=== PATIENT | female | born 1990 | race Caucasian/White ===

== ENCOUNTER 2016-07-17 10:40 | Emergency (ER) | payer OTHER ==
[2016-07-17] MEDS ORDERED: ONDANSETRON DISINTEGRATING 4 MG TAB ONE (10:54)
[2016-07-17] MEDS ORDERED: ONDANSETRON DISINTEGRATING 4 MG TAB PO ONE (11:02)
[2016-07-17] MEDS ORDERED: NS 1,000 ML IV ONE (11:12)
[2016-07-17 11:31] LABS: % IMMATURE GRANULYOCYTES 0.5 % (0.0-1.1); ABSOLUTE IMMATURE GRANULOCYTES 0.05 10^3/uL (0.00-0.10); ADD DIFF? NO; ADD MORPH? NO; ADD SCAN? NO; ATYPICAL LYMPHOCYTE FLAG 0 (0-99); FRAGMENT RBC FLAG 0 (0-99); HEMATOCRIT 44.2 % (38.0-47.0); LEFT SHIFT FLG 0 (0-99); LIPEMIA HEMOLYSIS FLAG 90 (0-99); MEAN CELL HEMOGLOBIN 27.5 pg (27.9-34.1); MEAN CELL HEMOGLOBIN CONCENTR. 33.9 g/dL (32.4-36.7); MEAN CELL VOLUME 81.1 fL (81.5-99.8); MEAN PLATELET VOLUME 9.9 fL (8.7-11.7); PLATELET CLUMPS FLAG 0 (0-99); PLATELET COUNT 286 10^3/uL (150-400); RED BLOOD CELL COUNT 5.45 10^6/uL (4.18-5.33); RED CELL DISTRIBUTION WIDTH 12.8 % (11.5-15.2)
--- NOTE | 2016-07-17 11:34 | UCPHY ---
H & P Patient Type: Established Chief Complaint Nursing Narrative: abd pain and nausea since last night; vomiting x1; last BM last night Time Seen by Provider: 07/17/16 10:58 HPI/ROS: This pt. describes Abd. pain - crampy in nature, epigastric more than lower belly pain, moderate intensity that made sleep difficult last pm. She notes no exac. or alleviating factors and now radiation of the pain. She's never had this pain before. She has associated anorexia, nausea and vomiting X 1 this am. Her last meal was dinner last pm. ROS: No fevers. She does c/o generalized weakness this am. No HEENT c/o. No SOB. she does notice that a deep breath increases abd. pain. No cardiovascular symptoms. : Last menstrual period was just under a month ago. That was normal timing. No urinary symptoms. GI: She reports loose stools about 3 day over the past 24 hours. No blood in her stool. No hematemesis or coffee-ground emesis. Integumentary: No rash 10 point ROS is otherwise negative. Source: Patient Exam Limitations: No limitations - Personal History LMP (Females 10-55): Over 28 Days Ago Current Tetanus/Diphtheria Vaccine: Yes - Medical/Surgical History PMH: otherwise healthy 25-year-old female with no previous belly surgeries Other PMH: med hx-none. 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 - Physical Exam Exam: General Appearance: Alert, no distress. Eyes: Pupils equal and round no pallor or injection. ENT, Mouth: Mucous membranes moist. Respiratory: There are no retractions, lungs are clear to auscultation. A deep breath does cause more belly pain Cardiovascular: Regular rate and rhythm. Gastrointestinal: Hypoactive BS. Soft, mild epigastric tenderness with no organomegally. Mild suprapubic t. w/o rebound. Back: No CVA tenderness Neurological: Alert with no focal deficits. Skin: Warm and dry, no rashes. Musculoskeletal: Neck is supple nontender. Extremities are symmetrical, full range of motion. Psychiatric: Mood and affect are normal DIFFERENTIAL DIAGNOSIS: After history and physical exam differential diagnosis was considered for Viral gastroenteritis, Hepatitis, Pancreatitis, Cholecystitis , preg. Constitutional: Initial Vital Signs Temperature (C) 36.7 C 07/17/16 10:56 Heart Rate 106 H 07/17/16 10:56 Respiratory Rate 18 07/17/16 10:56 Blood Pressure 137/99 H 07/17/16 10:56 O2 Sat (%) 97 07/17/16 10:56 O2 Delivery Mode Room Air Allergies/Adverse Reactions: No Known Allergies Allergy (Verified 07/17/16 10:56) Home Medications: Medication Instructions Recorded Bcp 05/03/16 Multi-Day Vitamins 05/03/16 Thyroid 05/03/16 HYOSCYAMINE SULFATE [LEVSIN-SL] 0.125 - 0.25 mg SL Q6 PRN #20 07/17/16 tab.subl Ondansetron Odt [Zofran Odt] 4 - 8 mg PO Q4PRN PRN #4 tab 07/17/16 Medical Decision Making ED Course/Re-evaluation: Zofran ODT with resolution of nausea vomiting. Lobe sutured with decreased abdominal cramping. I counseled the patient regarding viral gastroenteritis and abdominal cramping. She appears well at discharge. - Data Points Laboratory Results: Laboratory Results 07/17/16 11:25 07/17/16 11:25 07/17/16 07/17/16 07/17/16 12:10 11:42 11:25 WBC RBC Hgb Hct MCV MCH MCHC RDW Plt Count MPV Neut % (Auto) Lymph % (Auto) [place] % (Auto) Eos % (Auto) Baso % (Auto) Nucleat RBC Rel Count Absolute Neuts (auto) Absolute Lymphs (auto) Absolute Monos (auto) Absolute Eos (auto) Absolute Basos (auto) Absolute Nucleated RBC Immature Gran % Immature Gran # Sodium 140 mEq/L mEq/L (134-144) Potassium 4.1 mEq/L mEq/L (3.5-5.2) Chloride 105 mEq/L mEq/L (97-110) Carbon Dioxide 22 mEq/l mEq/l (22-31) Anion Gap 13 mEq/L mEq/L (8-16) BUN 12 mg/dL mg/dL (7-23) Creatinine 0.7 mg/dL mg/dL (0.6-1.0) Estimated GFR > 60 Glucose 108 mg/dL H mg/dL (70-100) Calcium 9.4 mg/dL mg/dL (8.5-10.4) Total Bilirubin 0.6 mg/dL mg/dL (0.1-1.4) AST 16 IU/L IU/L (14-46) ALT 16 IU/L IU/L (9-52) Alkaline Phosphatase 71 IU/L IU/L (38-126) Total Protein 7.3 g/dL g/dL (6.3-8.2) Albumin 3.8 g/dL g/dL (3.5-5.0) Lipase 75.0 IU/L IU/L (23-300) Beta HCG, Qual Urine Color YELLOW Urine Appearance CLEAR Urine pH 6.0 (5.0-7.5) Ur Specific [place] 1.020 (1.002-1.030) Urine Protein NEGATIVE (NEGATIVE) Urine Ketones TRACE H (NEGATIVE) Urine Blood NEGATIVE (NEGATIVE) Urine Nitrate NEGATIVE (NEGATIVE) Urine Bilirubin NEGATIVE (NEGATIVE) Urine Urobilinogen 0.2 EU EU (0.2-1.0) Ur Leukocyte Esterase NEGATIVE (NEGATIVE) Ur Culture Indicated? NOT INDICATED (NI) Urine Glucose NEGATIVE (NEGATIVE) 07/17/16 07/17/16 11:25 11:13 WBC 10.31 10^3/uL H 10^3/uL (3.80-9.50) RBC 5.45 10^6/uL H 10^6/uL (4.18-5.33) Hgb 15.0 g/dL g/dL (12.6-16.3) Hct 44.2 % % (38.0-47.0) MCV 81.1 fL L fL (81.5-99.8) MCH 27.5 pg L pg (27.9-34.1) MCHC 33.9 g/dL g/dL (32.4-36.7) RDW 12.8 % % (11.5-15.2) Plt Count 286 10^3/uL 10^3/uL (150-400) MPV 9.9 fL fL (8.7-11.7) Neut % (Auto) 87.3 % H % (39.3-74.2) Lymph % (Auto) 7.5 % L % (15.0-45.0) [place] % (Auto) 4.5 % % (4.5-13.0) Eos % (Auto) 0.0 % L % (0.6-7.6) Baso % (Auto) 0.2 % L % (0.3-1.7) Nucleat RBC Rel Count 0.0 % % (0.0-0.2) Absolute Neuts (auto) 9.01 10^3/uL H 10^3/uL (1.70-6.50) Absolute Lymphs (auto) 0.77 10^3/uL L 10^3/uL (1.00-3.00) Absolute Monos (auto) 0.46 10^3/uL 10^3/uL (0.30-0.80) Absolute Eos (auto) 0.00 10^3/uL L 10^3/uL (0.03-0.40) Absolute Basos (auto) 0.02 10^3/uL 10^3/uL (0.02-0.10) Absolute Nucleated RBC 0.00 10^3/uL 10^3/uL (0-0.01) Immature Gran % 0.5 % % (0.0-1.1) Immature Gran # 0.05 10^3/uL 10^3/uL (0.00-0.10) Sodium Potassium Chloride Carbon Dioxide Anion Gap BUN Creatinine Estimated GFR Glucose Calcium Total Bilirubin AST ALT Alkaline Phosphatase Total Protein Albumin Lipase Beta HCG, Qual NEGATIVE Urine Color Urine Appearance Urine pH Ur Specific [place] Urine Protein Urine Ketones Urine Blood Urine Nitrate Urine Bilirubin Urine Urobilinogen Ur Leukocyte Esterase Ur Culture Indicated? Urine Glucose Medications Given: Discontinued Medications Sodium Chloride (Ns) 1,000 mls @ 0 mls/hr IV ONCE ONE PRN Reason: Wide Open Stop: 07/17/16 11:13 Last Admin: 07/17/16 11:28 Dose: 1,000 mls Ondansetron HCl (Zofran Odt) 4 mg PO EDNOW ONE Stop: 07/17/16 11:03 Last Admin: 07/17/16 11:03 Dose: 4 mg Departure - Departure Disposition: Home, Routine, Self-Care Clinical Impression: Generalized abdominal cramping, Viral gastroenteritis Condition: Good Instructions: Gastroenteritis (ED) Additional Instructions: Diagnoses: 1. Viral gastroenteritis 2. Generalized abdominal cramping Your labs today are normal with the exception of mildly elevated with blood cell count consistent with this viral illness. Your not . Other labs are normal including normal liver function tests. Plan: Light diet until he feel improved Drink plenty fluids Zofran for nausea or vomiting if needed Levsin if needed for abdominal cramping Symptoms should improve over the next few days. Return for any significant worsening despite the treatment plan. Referrals: NONE *PRIMARY CARE P,. [Primary Care Provider] - As per Instructions Prescriptions: HYOSCYAMINE SULFATE [LEVSIN-SL] 0.125 - 0.25 mg SL Q6 PRN #20 tab.subl PRN Reason: abd. cramping Ondansetron Odt [Zofran Odt] 4 - 8 mg PO Q4PRN PRN #4 tab PRN Reason: Vomiting - PQRS PQRS Measurement: NA
[2016-07-17 11:45] VITALS: BP 120/83; PULSE 89; RESP 14; TEMP 98.8; O2SAT 96
[2016-07-17 11:49] LABS: ALANINE AMINOTRANSFERASE 16 IU/L (9-52); ALBUMIN 3.8 g/dL (3.5-5.0); ALKALINE PHOSPHATASE 71 IU/L (38-126); ANION GAP 13 mEq/L (8-16); ASPARTATE AMINOTRANSFERASE 16 IU/L (14-46); BILIRUBIN,TOTAL 0.6 mg/dL (0.1-1.4); CALCIUM 9.4 mg/dL (8.5-10.4); CARBON DIOXIDE 22 mEq/l (22-31); CHLORIDE 105 mEq/L (97-110); CREATININE 0.7 mg/dL (0.6-1.0); GLOMERULAR FILTRATION RATE > 60; GLUCOSE 108 mg/dL (70-100); POTASSIUM 4.1 mEq/L (3.5-5.2); SODIUM 140 mEq/L (134-144); TOTAL PROTEIN 7.3 g/dL (6.3-8.2)
[2016-07-17 12:20] LABS: COLOR YELLOW; LEUKOCYTE ESTERASE,URINE NEGATIVE (NEGATIVE); NITRITE,URINE NEGATIVE (NEGATIVE)
== END 2016-07-17 12:38 | disposition home or self-care (01) ==
LOC: CED 10:40
DX: K52.9 Noninfective gastroenteritis and colitis, unspecified (principal); R10.9 Unspecified abdominal pain; R63.0 Anorexia; Z72.0 Tobacco use
CPT/HCPCS: 80053-PO; 81003-PO; 83690-PO; 84703-PO; 85025-PO; 96360-PO; 99214-PO; G0463-PO

== ENCOUNTER 2016-08-07 10:34 | Emergency (ER) | payer OTHER ==
[2016-08-07] MEDS ORDERED: DEXAMETHASONE VARIABLE DOSE IVP/PO ONE (10:43)
[2016-08-07] MEDS ORDERED: AZITHROMYCIN 250 MG TAB PO ONE (10:44)
--- NOTE | 2016-08-07 10:47 | UCPHY ---
H & P Patient Type: New Time Seen by Provider: 08/07/16 10:39 HPI/ROS: CHIEF COMPLAINT: Sore throat HISTORY OF PRESENT ILLNESS: The patient is a 25-year-old female who comes to the Urgent Care complaining of a sore throat for the last 2 days. She has not had a fever. She has not had a cough for shortness of breath. She has not had any sinus congestion a ear symptoms. No headache. No abdominal symptoms. REVIEW OF SYSTEMS: Constitutional: denies: chills, fever, recent illness, recent injury EENTM: See HPI Respiratory: denies: cough, shortness of breath Cardiac: denies: chest pain, irregular heart rate, lightheadedness, palpitations Gastrointestinal/Abdominal: denies: abdominal pain, diarrhea, nausea, vomiting, blood streaked stools Genitourinary: denies: dysuria, frequency, hematuria, pain Musculoskeletal: denies: joint pain, muscle pain Skin: denies: lesions, rash, jaundice, bruising Neurological: denies: headache, numbness, paresthesia, tingling, dizziness, weakness Hematologic/Lymphatic: denies: blood clots, easy bleeding, easy bruising Immunologic/allergic: denies: HIV/AIDS, transplant EXAM: GENERAL: Well-appearing, well-nourished and in no acute distress. HEAD: Atraumatic, normocephalic. EYES: Pupils equal round and reactive to light, extraocular movements intact, sclera anicteric, conjunctiva are normal. ENT: TMs normal, nares patent, oropharynx erythematous and swollen. Moist mucous membranes. NECK: Normal range of motion, supple without lymphadenopathy or JVD. LUNGS: Breath sounds clear to auscultation bilaterally and equal. No wheezes rales or rhonchi. HEART: Regular rate and rhythm without murmurs, rubs or gallops. ABDOMEN: Soft, nontender, normoactive bowel sounds. No guarding, no rebound. No masses appreciated. BACK: No CVA tenderness, no spinal tenderness, step-offs or deformities EXTREMITIES: Normal range of motion, no pitting or edema. No clubbing or cyanosis. NEUROLOGICAL: Cranial nerves II through XII grossly intact. Normal speech, normal gait. 5/5 strength, normal movement in all extremities, normal sensation PSYCH: Normal mood, normal affect. SKIN: Warm, dry, normal turgor, no visible rashes or lesions. Source: Patient - Medical/Surgical History Hx Asthma: No Hx Chronic Respiratory Disease: No Hx Diabetes: No Hx Cardiac Disease: No Hx Renal Disease: No Hx Cirrhosis: No Hx Alcoholism: No Other PMH: med hx-none. surg-none - Family History Significant Family History: No pertinent family hx - Social History Smoking Status: Current some day smoker Alcohol Use: Sober Drug Use: None Constitutional: Initial Vital Signs Temperature (C) 37.0 C 08/07/16 10:37 Heart Rate 88 08/07/16 10:37 Respiratory Rate 18 08/07/16 10:37 Blood Pressure 150/88 H 08/07/16 10:37 O2 Sat (%) 97 08/07/16 10:37 O2 Delivery Mode Room Air Allergies/Adverse Reactions: No Known Allergies Allergy (Verified 08/07/16 10:47) Home Medications: Medication Instructions Recorded Bcp 05/03/16 Multi-Day Vitamins 05/03/16 Thyroid 05/03/16 HYOSCYAMINE SULFATE [LEVSIN-SL] 0.125 - 0.25 mg SL Q6 PRN #20 07/17/16 tab.subl Ondansetron Odt [Zofran Odt] 4 - 8 mg PO Q4PRN PRN #4 tab 07/17/16 AZITHROMYCIN [Z-PACK] 250 mg PO DAILY #4 tab 08/07/16 Medical Decision Making ED Course/Re-evaluation: The patient is a 25-year-old female with erythematous and swollen pharynx. I will start her on azithromycin and Decadron. Strep swab is pending. Patient understands and agrees with this plan. She declines further workup or testing at this time. We discussed indications for returning. Differential Diagnosis: Partial list of the Differential diagnosis considered include but were not limited to; strep throat, pharyngitis, viral syndrome, sinusitis and although unlikely based on the history and physical exam, I also considered bronchitis, pneumonia, meningitis, sepsis. I discussed these differential diagnoses and the plan with the patient as well as the usual and expected course. The patient understands that the diagnosis is provisional and that in medicine we are not always correct and that further workup is often warranted. Usual and customary warnings were given. All of the patient's questions were answered. The patient was instructed to return to the emergency department should the symptoms at all worsen or return, otherwise to followup with the physician as we discussed. - Data Points Laboratory Results: 08/07/16 10:45 Group A Strep Screen POSITIVE H (NEGATIVE) Medications Given: Discontinued Medications Azithromycin (Zithromax) 500 mg PO EDNOW ONE PRN Reason: Protocol Stop: 08/07/16 10:45 Last Admin: 08/07/16 11:00 Dose: 500 mg Dexamethasone Sodium Phosphate (Decadron) 10 mg IVP/PO EDNOW ONE Stop: 08/07/16 10:44 Last Admin: 08/07/16 11:00 Dose: 10 mg Departure - Departure Disposition: Home, Routine, Self-Care Clinical Impression: Pharyngitis Qualifiers: Pharyngitis/tonsillitis etiology: unspecified etiology Qualified Code(s): J02.9 - Acute pharyngitis, unspecified Condition: Fair Instructions: Pharyngitis (ED) Referrals: NONE *PRIMARY CARE P,. [Primary Care Provider] - As per Instructions Prescriptions: AZITHROMYCIN [Z-PACK] 250 mg PO DAILY #4 tab - PQRS PQRS Measurement: Not applicable
[2016-08-07] MEDS ORDERED: DEXAMETHASONE 4 MG TAB ONE (11:00)
[2016-08-07 11:34] VITALS: BP 150/88; PULSE 88; RESP 18; TEMP 98.6; O2SAT 97
== END 2016-08-07 11:10 | disposition home or self-care (01) ==
LOC: CED 10:34
DX: J02.9 Acute pharyngitis, unspecified (principal)
CPT/HCPCS: 87880-PO; 99204-PO; G0463-PO

== ENCOUNTER 2017-01-16 18:30 | Emergency (ER) | payer OTHER ==
--- NOTE | 2017-01-16 18:34 | EDPHY ---
H & P HPI/ROS: HPI CHIEF COMPLAINT: Right back pain, pleuritic pain, burning in chest HISTORY OF PRESENT ILLNESS: This patient very pleasant 26-year-old female, denies any significant medical history or surgical history does not take any daily medications except control, she does not smoke, she presents emergency room with pain in her right posterior scapular worse when she takes a deep breath in. She denies being pleuritic. Additionally she tells me she feels burning in the center of her chest. States it goes from the epigastric region up to the top of her throat. She denies any significant shortness of breath. Denies fever. Denies productive cough. She states she was recently sick with a cold last month. She decided come the emergency room as she is having ongoing back pain right scapula and burning in the anterior chest. No history of DVT or PE. No history of pneumonia. No history of pneumothorax. Past Surgical History: No recent surgical history Social History: Denies daily use drugs alcohol tobacco products Family History: Noncontributory ROS REVIEW OF SYSTEMS: A comprehensive 10 point review of systems is otherwise negative aside from elements mentioned in the history of present illness. Exam Constitutional appears well nontoxic, triage nursing summary reviewed, vital signs reviewed, awake/alert. Eyes normal conjunctivae and sclera, EOMI, PERRLA. HENT normal inspection, atraumatic, moist mucus membranes, no epistaxis, neck supple/ no meningismus, no raccoon eyes. Respiratory clear to auscultation bilaterally, normal breath sounds, no respiratory distress, no wheezing. Cardiovascular rate normal, regular rhythm, no murmur, no edema, distal pulses normal. Gastrointestinal soft, non-tender, no rebound, no guarding, normal bowel sounds, no distension, no pulsatile mass. Genitourinary no CVA tenderness. Musculoskeletal no midline vertebral tenderness, full range of motion, no calf swelling, no tenderness of extremities, no meningismus, good pulses, neurovascularly intact. Skin pink, warm, & dry, no rash, skin atraumatic. Neurologic awake, alert and oriented x 3, AAOx3, moves all 4 extremities equally, motor intact, sensory intact, CN II-XII intact, normal cerebellar, normal vision, normal speech. Psychiatric normal mood/affect. Heme/Lymph/Immune no lymphadenopathy. Differential Diagnosis: Includes but is not limited to in a particular order, PE, pleurisy, pneumonia, pneumothorax, musculoskeletal pain, GERD, doubt acute coronary syndrome Medical Decision Making: Plan for this patient IV establishment, blood draw, EKG, GI cocktail. Chest x-ray. Re-evaluate. Re-evaluation: EKG interpretation by me on record in [facility] system. Impression and time of EKG 1847, sinus rhythm rate of 66, unremarkable EKG. No acute ischemic changes appreciated. 1947: Re-evaluation at this time patient resting comfortably. No acute distress. Feels much better after GI cocktail. States the burning sensation or chest has resolved. Her chest x-ray, EKG, D-dimer, troponin, electrolytes have been reviewed. Nothing to explain this burning sensation in her chest decides reflux. The pain in her back I do not visualize any lung mass or tumor. There is no pneumonia. D-dimer is negative for PE. Recommend placing on anti-inflammatories and Zantac the next 2 weeks. Patient understands return emergency room if there is worsening symptoms includes worsening shortness of breath, chest pain or any questions or concerns she understands. Source: Patient - Medical/Surgical History Hx Asthma: No Hx Chronic Respiratory Disease: No Hx Diabetes: No Hx Cardiac Disease: No Hx Renal Disease: No Hx Cirrhosis: No Hx Alcoholism: No Other PMH: med hx-none. surg-none - Social History Smoking Status: Current some day smoker Constitutional: Initial Vital Signs Temperature (C) 36.7 C 01/16/17 18:45 Heart Rate 74 01/16/17 18:45 Respiratory Rate 16 01/16/17 18:45 Blood Pressure 131/85 H 01/16/17 18:45 O2 Sat (%) 98 01/16/17 18:45 O2 Delivery Mode Room Air Allergies/Adverse Reactions: No Known Allergies Allergy (Verified 08/07/16 10:47) Home Medications: Medication Instructions Recorded Bcp 05/03/16 Multi-Day Vitamins 05/03/16 Thyroid 05/03/16 HYOSCYAMINE SULFATE [LEVSIN-SL] 0.125 - 0.25 mg SL Q6 PRN #20 07/17/16 tab.subl Ondansetron Odt [Zofran Odt] 4 - 8 mg PO Q4PRN PRN #4 tab 07/17/16 AZITHROMYCIN [Z-PACK] 250 mg PO DAILY #4 tab 08/07/16 Ranitidine HCl [Zantac] 150 mg PO DAILY #30 tablet 01/16/17 Medical Decision Making - Diagnostics Imaging Results: Imaging Impressions Chest X-Ray 01/16/17 18:42 Impression: Normal chest x-ray. - Data Points Laboratory Results: Laboratory Results 01/16/17 18:55 01/16/17 18:55 01/16/17 01/16/17 01/16/17 18:55 18:55 18:55 WBC RBC Hgb Hct MCV MCH MCHC RDW Plt Count MPV Neut % (Auto) Lymph % (Auto) [place] % (Auto) Eos % (Auto) Baso % (Auto) Nucleat RBC Rel Count Absolute Neuts (auto) Absolute Lymphs (auto) Absolute Monos (auto) Absolute Eos (auto) Absolute Basos (auto) Absolute Nucleated RBC Immature Gran % Immature Gran # D-Dimer < 0.27 ug/mLFEU ug/mLFEU (0.00-0.50) Sodium 140 mEq/L mEq/L (134-144) Potassium 3.8 mEq/L mEq/L (3.5-5.2) Chloride 105 mEq/L mEq/L (97-110) Carbon Dioxide 23 mEq/l mEq/l (22-31) Anion Gap 12 mEq/L mEq/L (8-16) BUN 13 mg/dL mg/dL (7-23) Creatinine 0.7 mg/dL mg/dL (0.6-1.0) Estimated GFR > 60 Glucose 98 mg/dL mg/dL (70-100) Calcium 9.6 mg/dL mg/dL (8.5-10.4) Magnesium 2.0 mg/dL mg/dL (1.6-2.3) Total Bilirubin 0.3 mg/dL mg/dL (0.1-1.4) Conjugated Bilirubin 0.3 mg/dL mg/dL (0.0-0.5) Unconjugated Bilirubin 0.0 mg/dL mg/dL (0.0-1.1) AST 15 IU/L IU/L (14-46) ALT 25 IU/L IU/L (9-52) Alkaline Phosphatase 57 IU/L IU/L (38-126) Creatine Kinase 48 IU/L IU/L (0-156) CK-MB (CK-2) Fraction < 0.22 ng/mL ng/mL (0.00-4.55) Troponin I < 0.012 ng/mL ng/mL (0.000-0.034) NT-Pro-B Natriuret Pep 63 pg/mL pg/mL (0-125) Total Protein 7.1 g/dL g/dL (6.3-8.2) Albumin 3.9 g/dL g/dL (3.5-5.0) Lipase 135 IU/L IU/L (23-300) Beta HCG, Qual NEGATIVE 01/16/17 18:55 WBC 11.43 10^3/uL H 10^3/uL (3.80-9.50) RBC 5.13 10^6/uL 10^6/uL (4.18-5.33) Hgb 13.9 g/dL g/dL (12.6-16.3) Hct 41.5 % % (38.0-47.0) MCV 80.9 fL L fL (81.5-99.8) MCH 27.1 pg L pg (27.9-34.1) MCHC 33.5 g/dL g/dL (32.4-36.7) RDW 12.7 % % (11.5-15.2) Plt Count 304 10^3/uL 10^3/uL (150-400) MPV 9.9 fL fL (8.7-11.7) Neut % (Auto) 62.6 % % (39.3-74.2) Lymph % (Auto) 29.1 % % (15.0-45.0) [place] % (Auto) 7.7 % % (4.5-13.0) Eos % (Auto) 0.0 % L % (0.6-7.6) Baso % (Auto) 0.3 % % (0.3-1.7) Nucleat RBC Rel Count 0.0 % % (0.0-0.2) Absolute Neuts (auto) 7.14 10^3/uL H 10^3/uL (1.70-6.50) Absolute Lymphs (auto) 3.33 10^3/uL H 10^3/uL (1.00-3.00) Absolute Monos (auto) 0.88 10^3/uL H 10^3/uL (0.30-0.80) Absolute Eos (auto) 0.00 10^3/uL L 10^3/uL (0.03-0.40) Absolute Basos (auto) 0.04 10^3/uL 10^3/uL (0.02-0.10) Absolute Nucleated RBC 0.00 10^3/uL 10^3/uL (0-0.01) Immature Gran % 0.3 % % (0.0-1.1) Immature Gran # 0.04 10^3/uL 10^3/uL (0.00-0.10) D-Dimer Sodium Potassium Chloride Carbon Dioxide Anion Gap BUN Creatinine Estimated GFR Glucose Calcium Magnesium Total Bilirubin Conjugated Bilirubin Unconjugated Bilirubin AST ALT Alkaline Phosphatase Creatine Kinase CK-MB (CK-2) Fraction Troponin I NT-Pro-B Natriuret Pep Total Protein Albumin Lipase Beta HCG, Qual Medications Given: Discontinued Medications Al Hydroxide/Mg Hydroxide (Maalox Susp) 30 ml PO ONCE ONE Stop: 01/16/17 18:44 Last Admin: 01/16/17 18:50 Dose: 30 ml Hyoscyamine Sulfate (Levsin, Hyomax-Sl) 0.25 mg PO ONCE ONE Stop: 01/16/17 18:44 Last Admin: 01/16/17 18:50 Dose: 0.25 mg Sodium Chloride (Ns) 1,000 mls @ 0 mls/hr IV EDNOW ONE; Wide Open PRN Reason: Protocol Stop: 01/16/17 18:43 Last Admin: 01/16/17 18:51 Dose: 1,000 mls Lidocaine (Lidocaine 2% Viscous) 15 ml PO ONCE ONE Stop: 01/16/17 18:44 Last Admin: 01/16/17 18:50 Dose: 15 ml Departure - Departure Disposition: Home, Routine, Self-Care Clinical Impression: GERD (gastroesophageal reflux disease) Qualifiers: Esophagitis presence: without esophagitis Qualified Code(s): K21.9 - Gastro- esophageal reflux disease without esophagitis Condition: Good Instructions: Gastroesophageal Reflux Disease (ED) Additional Instructions: 1. Return emergency room if develops worsening symptoms questions or concerns. 2. [place] diet next 24-48 hours. No spicy fatty greasy foods. 3. Zantac as prescribed. He may also take Tylenol for her back pain. Referrals: NONE *PRIMARY CARE P,. [Primary Care Provider] - As per Instructions Prescriptions: Ranitidine HCl [Zantac] 150 mg PO DAILY #30 tablet
[2017-01-16] MEDS ORDERED: NS 1,000 ML IV ONE (18:42)
[2017-01-16] MEDS ORDERED: MAG HYDROX/AL HYDROX/SIMETH 30 ML UDCUP PO ONE (18:43)
[2017-01-16] MEDS ORDERED: LIDOCAINE 2% VISCOUS 15 ML UDCUP PO ONE (18:43)
[2017-01-16] MEDS ORDERED: HYOSCYAMINE SULFATE 0.125 MG TAB PO ONE (18:43)
[2017-01-16 18:46] VITALS: TEMP 98.1; O2SAT 98
--- NOTE | 2017-01-16 18:50 | CPEKG ---
Heart Rate: 66 RR Interval: 909 P-R Interval: 164 QRSD Interval: 90 QT Interval: 380 QTC Interval: 399 P [place]: 42 QRS [place]: 71 T Wave [place]: 38 EKG Severity - NORMAL ECG - EKG Impression: SINUS RHYTHM Electronically Signed By: Jorgito Henderson 19-Jan-2017 08:16:38
[2017-01-16 18:59] LABS: % IMMATURE GRANULYOCYTES 0.3 % (0.0-1.1); ABSOLUTE IMMATURE GRANULOCYTES 0.04 10^3/uL (0.00-0.10); ADD DIFF? NO; ADD MORPH? NO; ADD SCAN? NO; ATYPICAL LYMPHOCYTE FLAG 10 (0-99); FRAGMENT RBC FLAG 0 (0-99); HEMATOCRIT 41.5 % (38.0-47.0); HEMOGLOBIN 13.9 g/dL (12.6-16.3); LEFT SHIFT FLG 0 (0-99); LIPEMIA HEMOLYSIS FLAG 80 (0-99); MEAN CELL HEMOGLOBIN 27.1 pg (27.9-34.1); MEAN CELL HEMOGLOBIN CONCENTR. 33.5 g/dL (32.4-36.7); MEAN CELL VOLUME 80.9 fL (81.5-99.8); MEAN PLATELET VOLUME 9.9 fL (8.7-11.7); PLATELET CLUMPS FLAG 30 (0-99); PLATELET COUNT 304 10^3/uL (150-400); RED BLOOD CELL COUNT 5.13 10^6/uL (4.18-5.33); RED CELL DISTRIBUTION WIDTH 12.7 % (11.5-15.2)
[2017-01-16 19:20] LABS: ALANINE AMINOTRANSFERASE 25 IU/L (9-52); ALBUMIN 3.9 g/dL (3.5-5.0); ALKALINE PHOSPHATASE 57 IU/L (38-126); ANION GAP 12 mEq/L (8-16); ASPARTATE AMINOTRANSFERASE 15 IU/L (14-46); BILIRUBIN,TOTAL 0.3 mg/dL (0.1-1.4); BILIRUBIN-CONJUGATED 0.3 mg/dL (0.0-0.5); CALCIUM 9.6 mg/dL (8.5-10.4); CARBON DIOXIDE 23 mEq/l (22-31); CHLORIDE 105 mEq/L (97-110); CREATININE 0.7 mg/dL (0.6-1.0); GLOMERULAR FILTRATION RATE > 60; GLUCOSE 98 mg/dL (70-100); POTASSIUM 3.8 mEq/L (3.5-5.2); SODIUM 140 mEq/L (134-144); TOTAL PROTEIN 7.1 g/dL (6.3-8.2)
[2017-01-16 19:24] LABS: CREATINE KINASE-MB FRACTION < 0.22 ng/mL (0.00-4.55); TROPONIN I < 0.012 ng/mL (0.000-0.034)
[2017-01-16 19:54] VITALS: BP 128/71; PULSE 66; RESP 16
== END 2017-01-16 19:54 | disposition home or self-care (01) ==
LOC: CED 18:30
DX: K21.9 Gastro-esophageal reflux disease without esophagitis (principal); F17.200 Nicotine dependence, unspecified, uncomplicated; E86.9 Volume depletion, unspecified
CPT/HCPCS: 71020-PO; 80048-PO; 80076-PO; 82550-PO; 82553-PO; 83690-PO; 83735-PO; 83880-PO; 84484-PO; 84703-PO; 85025-PO; 85378-PO